=== PATIENT | female | born 1965 | race Caucasian/White ===

== ENCOUNTER 2017-08-14 02:59 | Emergency (ER) | payer BC ==
[~2017-08-14] VITALS: Ht 165.1 cm; Wt 90.7 kg
[~2017-08-14 02:59] MED LIST: FLOMAX0.4 M1 PO; HYDROCODON-ACE1 EAC7 PO; HYDROCODON-ACE1 EACH PO; NO MEDICATIONS; TYLENOL500 MG; ULTRAM PO
[2017-08-14] MEDS ORDERED: NO MEDICATIONS (03:05)
== END 2017-08-14 03:57 | disposition home or self-care (01) ==
LOC: SED 02:59
DX: S05.02XA Injury of conjunctiva and corneal abrasion without foreign body, left eye, initial encounter (principal); H10.32 Unspecified acute conjunctivitis, left eye; I10 Essential (primary) hypertension; X58.XXXA Exposure to other specified factors, initial encounter
CPT/HCPCS: 99283